=== PATIENT | female | born 1970 | race Caucasian/White ===

== ENCOUNTER 2018-05-24 23:38 | Emergency (ER) | payer OTHER ==
[~2018-05-24] VITALS: Ht 172.7 cm; Wt 90.7 kg
[2018-05-24 23:40] VITALS: BP 158/90
--- NOTE | 2018-05-24 23:40 | NUR ---
TO LOBBY AWAITING BED, [facility]
[2018-05-25 00:34] LABS: BASOPHILS # (AUTO) 0.1 K/uL (0.00-0.22); BASOPHILS % (AUTO) 0.5 % (0.0-2.0); EOSINOPHILS # (AUTO) 0.2 K/uL (0-0.4); HEMOGLOBIN 14.3 g/dL (12.0-16.0); LYMPHOCYTES # (AUTO) 2.6 K/uL (2.5-16.5); LYMPHOCYTES % (AUTO) 16.5 % (20.5-51.1); MEAN CORPUSCULAR HEMOGLOBIN 27 pg (27-31); MEAN CORPUSCULAR HGB CONC 32 g/dL (33-37); MEAN CORPUSCULAR VOLUME 85.2 fL (80-94); MONOCYTES # (AUTO) 0.9 K/uL (0.8-1.0); MONOCYTES % (AUTO) 5.5 % (1.7-9.3); PLATELET COUNT (AUTO) 221 K/uL (140-450); RED BLOOD CELL COUNT(AUTO) 5.29 MIL/uL (4.20-5.40); RED CELL DISTRIBUTION WIDTH 14.2 % (11.6-13.7); WHITE BLOOD COUNT (AUTO) 15.7 K/uL (4.8-10.8)
[2018-05-25 00:36] LABS: APPEARANCE,URINE CLEAR (CLEAR); BILIRUBIN,URINE NEGATIVE (NEGATIVE); BLOOD, URINE 1+ (NEGATIVE); COLOR,URINE YELLOW (YELLOW); LEUKOCYTE ESTERASE ,URINE NEGATIVE (NEGATIVE); NITRITE, URINE NEGATIVE (NEGATIVE); UGLUCOSE NEGATIVE (NEGATIVE)
[2018-05-25 00:45] LABS: ANION GAP 13.5 (8-16); CREATININE 0.9 mg/dL (0.6-1.3); POTASSIUM 3.5 mmol/L (3.5-5.1)
[2018-05-25 00:46] LABS: NEUTROPHILS % (AUTO) 76.5 % (42.2-75.2)
[2018-05-25 00:49] LABS: ALBUMIN 3.5 g/dL (3.4-5.0); TOTAL BILIRUBIN 0.4 mg/dL (0.0-1.0)
[2018-05-25 00:51] LABS: RBC,URINE 3-10 (FEW) /HPF (0-5); WBC,URINE 0-5 (RARE) /HPF (0-5)
--- NOTE | 2018-05-25 01:38 | NUR ---
PT C/O 11/15 EPIGASTRIC PAIN SINCE EATING TODAY. DENIES N/V/D. LBM 05/23/18. DENIES CP/SOB AT THIS TIME. PT DENIES N/V/D; SKIN IS INTACT, PINK/WARM/DRY; AAOX4, PERRL, WITH EVEN AND STEADY GAIT; LUNGS CLEAR BL, BREATHING UNLABORED; HR EVEN AND REGULAR, BL PERIPHERAL PULSES PRESENT; BS ACTIVE X4, TENDER TO EPIGASTRIC REGION, NO HEPATOSPLENOMEGALLY PALPATED, RESONANT TO PERCUSSION; PT DENIES ANY FEVER, CP, SOB, OR COUGH AT THIS TIME; VSS; PATIENT POSITIONED FOR COMFORT; HOB ELEVATED; BEDRAILS UP X2; BED DOWN. PLACED ON FULL MONITOR.
--- NOTE | 2018-05-25 01:38 | NUR ---
PT AMBULATED TO BED 01
[2018-05-25] MEDS ORDERED: ONDANSETRON 4 MG/2 ML VIAL IVP ONE (01:55)
[2018-05-25] MEDS ORDERED: MORPHINE SULFATE 4 MG/ML SYR IVP ONE (01:55)
--- NOTE | 2018-05-25 02:00 | NUR ---
PT ON BED IN SUPINE POSITION, EYES OPEN, RESPIS E/U, NO COMPLAINTS OF CP AT THIS TIME. FULL MONITOR ON, NO IDENTIFIED REQUESTS.
--- NOTE | 2018-05-25 02:30 | NUR ---
CONSENT FOR CT GIVEN TO PATIENT
--- NOTE | 2018-05-25 03:00 | NUR ---
PT ON BED IN SUPINE POSITION, EYES OPEN, RESPIS E/U, NO COMPLAINTS OF CP AT THIS TIME. FULL MONITOR ON, NO IDENTIFIED REQUESTS.
--- NOTE | 2018-05-25 03:18 | NUR ---
PT TO CT WITH TECH AT THIS TIME
--- NOTE | 2018-05-25 03:40 | NUR ---
PT RETURN FROM CT
--- NOTE | 2018-05-25 04:00 | NUR ---
PT ON BED IN SUPINE POSITION, EYES OPEN, RESPIS E/U, NO COMPLAINTS OF CP AT THIS TIME. FULL MONITOR ON, NO IDENTIFIED REQUESTS.
[2018-05-25 05:57] VITALS: BP 135/70
--- NOTE | 2018-05-25 05:57 | NUR ---
Patient discharged with v/s stable. Written and verbal after care instructions given and explained. Patient alert, oriented and verbalized understanding of instructions. Ambulatory with steady gait. All questions addressed prior to discharge. ID band removed. Patient advised to follow up with PMD. Rx of zofran and percocet given. Patient educated on indication of medication including possible reaction and side effects. Opportunity to ask questions provided and answered.
== END 2018-05-25 05:57 | disposition home or self-care (01) ==
LOC: MED 23:38
DX: K80.20 Calculus of gallbladder without cholecystitis without obstruction (principal)
CPT/HCPCS: 36415; 74177; 80053; 81001; 81025; 83690; 85025; 87086; 96374; 96375; 99284; J2270; J2405; Q9967